=== PATIENT | male | born 1970 | race Caucasian/White ===

== ENCOUNTER → 2019-08-12 | Day surgery (SDC) | payer BC ==
[2012-11-15 17:38] VITALS: BP 129/71
[~2019-08-12] MED LIST: ERYTHROMYCIN500 M2 PO; EXCEDRIN1 TAB PO; MAPAP500 M2 PO; ULTRAM50 MG PO
== END ==
LOC: MSO 08:12
DX: Z12.11 Encounter for screening for malignant neoplasm of colon (principal); Z87.891 Personal history of nicotine dependence
CPT/HCPCS: 00812; J2704; J7120

== ENCOUNTER 2023-12-27 08:02 | Emergency (ER) | payer BC ==
[~2023-12-27] VITALS: Ht 185.4 cm; Wt 113.6 kg
[2023-12-27] MEDS ORDERED: Lidocaine 1% (10 MG/ML) 10 ML Multi-Dose IJ ONE (08:27)
[2023-12-27] MEDS ORDERED: Triamcinolone 40 MG/ML 1 ML VIAL IJ ONE (08:29)
[2023-12-27] MEDS ORDERED: HYDROcodone/Acetaminophen 10-325 MG TAB PO ONE (08:45)
[2023-12-27 09:24] VITALS: BP 128/100
== END 2023-12-27 09:25 | disposition home or self-care (01) ==
LOC: ED 08:02
DX: M54.50 Low back pain, unspecified (principal); M51.36 Other intervertebral disc degeneration, lumbar region
CPT/HCPCS: J3301